=== PATIENT | male | born 1950 | race Caucasian/White ===

== ENCOUNTER 2024-12-08 16:19 | Inpatient (IN) | payer MEDICARE, MEDICAID ==
[2024-12-08] VITALS (20 sets, daily range): BP systolic 69–108; BP diastolic 49–69; PULSE 102–125; RESP 23–38; TEMP 36.7–36.7516; O2SAT 89–100
[~2024-12-08] VITALS: Ht 104.1 cm; Wt 50.8 kg
[2024-12-08 16:47] LABS: HEMATOCRIT. 30.7 % (42.0-52.0); HEMOGLOBIN. 9.4 g/dL (14.0-18.0); MEAN PLATELET VOLUME 7.7 fl (7.4-10.4); PLATELET 579 x1000/uL (130-400); RED BLOOD CELL COUNT 3.64 mill/uL (4.7-6.1); RED CELL DISTRIBUTION WIDTH 17.3 % (11.6-14.6)
[2024-12-08 17:04] LABS: CREATININE 1.1 mg/dL (0.6-1.3); UREA NITROGEN BLOOD 17 mg/dL (9-23)
[2024-12-08 17:06] LABS: ASPARTATE AMINOTRANSFERASE 19 IU/L (<34); BILIRUBIN DIRECT 0.2 mg/dL (<=3.0)
[2024-12-08 17:07] LABS: BILIRUBIN TOTAL 0.4 mg/dL (0.1-1.0); PROTEIN TOTAL 6.7 g/dL (6.0-8.3)
[2024-12-08 17:08] LABS: INR 1.3
[2024-12-08 17:09] LABS: OSMOLALITY 307 mOsm/kg (280-295)
[2024-12-08 17:13] LABS: TROPONIN I HIGH SENSITIVITY 73 ng/L (3.0-53)
[2024-12-08 17:20] LABS: BG BASE EXCESS -4.4 mmol/L (-2.0-3.0); BG CARBOXYHEMOGLOBIN 1.0 % (0.5-1.5); BG DEOXYHEMOGLOBIN 3.9 % (0.0-5.0); BG FLOW(L/min) 40.00 L/min; BG FRACTION INSPIRED OXYGEN 100; BG HCO3 ACT 20.4 mmol/L (21.0-28.0); BG METHEMOGLOBIN 0.3 % (0.5-1.5); BG OXYGEN SATURATION 96.0 % (94.0-98.0); BG OXYHEMOGLOBIN 94.8 % (94.0-98.0); BG PCO2 36.1 mmHg (35.0-48.0); BG PH 7.369 (7.350-7.450); BG PO2 86.4 mmHg (83.0-108.0); BG SAMPLE SITE RIGHT BRACHIAL; BG TOTAL HEMOGLOBIN 8.9 g/dL (13.5-17.5); BG VENT MODE HIGH FLOW
[2024-12-08] MEDS: SODIUM CHLORIDE 0.9% 1,000 ML IV ONE (17:23)
[2024-12-08] MEDS: VANCOMYCIN 1G PREMIX 200 ML IV ONE (17:30)
[2024-12-08] MEDS: ASPIRIN 325MG EC TABLET PO ONE (18:05)
[2024-12-08] MEDS: CLOPIDOGREL 75MG TABLET PO ONE (18:05)
[2024-12-08] MEDS ORDERED: ONDANSETRON HCL 4MG/2ML INJ IV PRN (19:00)
[2024-12-08] MEDS ORDERED: CLONIDINE 0.1MG TABLET PO PRN (19:00)
[2024-12-08] MEDS ORDERED: DOCUSATE SODIUM 100MG CAPSULE PO PRN (19:00)
[2024-12-08 19:53] LABS: BAND% 8.0 % (1.0-6.0); LYMPHOCYTES % MANUAL 25.0 % (20.0-50.0); MONOCYTES % MANUAL 9.0 % (2.0-8.0); NEUTROPHILS % MANUAL 58.0 % (45.0-75.0); PLATELET ESTIMATE MARKEDLY INCREASED
[2024-12-08] MEDS ORDERED: PHENYLEPHRINE 50MG/250ML PMX 250 ML IV PRN (21:00)
[2024-12-08] MEDS ORDERED: PIPERACILLIN/TAZO 3.375G/50ML 50 ML IV ONE (21:00)
[2024-12-08] MEDS: PIPERACILLIN/TAZO 3.375G/50ML 50 ML IV SCH (21:18)
[2024-12-08] MEDS: ACETAMINOPHEN 325MG TABLET PO PRN (21:19)
[2024-12-08] MEDS: BLOOD SUGAR DIAGNOSTIC STRIP TEST SCH (21:38)
[2024-12-08] MEDS: INSULIN LISPRO 100 UNITS/ML SUBCUT SCH (21:46)
[2024-12-08 21:58] LABS: BG BASE EXCESS -3.1 mmol/L (-2.0-3.0); BG CARBOXYHEMOGLOBIN 1.9 % (0.5-1.5); BG DEOXYHEMOGLOBIN 0.7 % (0.0-5.0); BG FLOW(L/min) 15.00 L/min; BG HCO3 ACT 20.9 mmol/L (21.0-28.0); BG METHEMOGLOBIN 0.3 % (0.5-1.5); BG OXYGEN SATURATION 99.3 % (94.0-98.0); BG OXYHEMOGLOBIN 97.1 % (94.0-98.0); BG PCO2 32.8 mmHg (35.0-48.0); BG PH 7.423 (7.350-7.450); BG PO2 133.2 mmHg (83.0-108.0); BG SAMPLE SITE LEFT BRACHIAL; BG TOTAL HEMOGLOBIN 7.1 g/dL (13.5-17.5); BG VENT MODE MASK - NRB
[2024-12-08] MEDS: MORPHINE SULFATE 4 MG/ML INJ (FOR IV/IM USE) IV PRN (23:48)
[2024-12-08] MEDS: PHENYLEPHRINE 50 MG in DEXT 5% WATER 245 ML IV PRN (23:54)
[2024-12-09] VITALS (108 sets, daily range): BP systolic 61–153; BP diastolic 45–89; PULSE 81–132; RESP 16–37; TEMP 36–37.6; O2SAT 72–100
[2024-12-09] MEDS: IPRATROPIUM BROMIDE (0.02%) 0.5MG/2.5ML NEB HHN SCH (00:33)
[2024-12-09] MEDS: VANCOMYCIN 500 MG in DEXT 5% WATER 100 ML IV SCH (05:16)
[2024-12-09 05:27] LABS: HEMATOCRIT. 25.6 % (42.0-52.0); HEMOGLOBIN. 8.0 g/dL (14.0-18.0); MEAN PLATELET VOLUME 7.7 fl (7.4-10.4); PLATELET 463 x1000/uL (130-400); RED BLOOD CELL COUNT 3.12 mill/uL (4.7-6.1); RED CELL DISTRIBUTION WIDTH 17.2 % (11.6-14.6)
[2024-12-09 05:56] LABS: TRIGLYCERIDE 83 mg/dL (0-150)
[2024-12-09 05:57] LABS: LDL CHOLESTEROL 11 mg/dL (5-100)
[2024-12-09 05:58] LABS: T4 FREE 0.65 ng/dL (0.89-1.76)
[2024-12-09 07:38] LABS: CREATININE 1.1 mg/dL (0.6-1.3)
[2024-12-09 07:39] LABS: UREA NITROGEN BLOOD 23 mg/dL (9-23)
[2024-12-09] MEDS: IPRATROPIUM/ALBUTEROL 0.5-3(2.5)MG/3ML NEB HHN PRN (08:08)
[2024-12-09] MEDS ORDERED: NALOXONE HCL 0.4MG/ML VIAL IV PRN (08:30)
[2024-12-09] MEDS: ENOXAPARIN 30MG/0.3ML SYR SUBCUT SCH (08:40)
[2024-12-09 09:53] LABS: INFLUENZA TYPE A Presumptive Negative (Pres. Neg.)
[2024-12-09 09:54] LABS: INFLUENZA TYPE B Presumptive Negative (Pres. Neg.); RESPIRATORY SYNCYTIAL VIRUS Not Detected (Not Detectd)
[2024-12-09] MEDS: PROPOFOL 10MG/ML 100ML 100 ML IV PRN (10:22)
[2024-12-09 11:40] LABS: BG BASE EXCESS -4.6 mmol/L (-2.0-3.0); BG CARBOXYHEMOGLOBIN 0.8 % (0.5-1.5); BG DEOXYHEMOGLOBIN 4.4 % (0.0-5.0); BG FRACTION INSPIRED OXYGEN 50; BG HCO3 ACT 22.8 mmol/L (21.0-28.0); BG METHEMOGLOBIN 0.3 % (0.5-1.5); BG OXYGEN SATURATION 95.6 % (94.0-98.0); BG OXYHEMOGLOBIN 94.5 % (94.0-98.0); BG PCO2 53.7 mmHg (35.0-48.0); BG PEEP (cmH2O) 8.0 cmH2O; BG PH 7.246 (7.350-7.450); BG PO2 93.4 mmHg (83.0-108.0); BG SAMPLE SITE RIGHT BRACHIAL; BG TIDAL VOLUME(mL) 450.0 mL; BG TOTAL HEMOGLOBIN 9.4 g/dL (13.5-17.5); BG TOTAL RESPIRATORY RATE 16 b/min; BG VENT MODE VENT - AC; BG VENT RATE 16.0 set
[2024-12-09 11:52] LABS: LACTATE DEHYDROGENASE 274 IU/L (120-246)
[2024-12-09] MEDS: SODIUM CHLORIDE 0.9% (SEPSIS BOLUS) IV NR (12:30)
[2024-12-09] MEDS: SODIUM CHLORIDE 0.9% 1,000 ML IV SCH (12:30)
[2024-12-09 12:48] LABS: BAND% 47.0 % (1.0-6.0); LYMPHOCYTES % MANUAL 5.0 % (20.0-50.0); MONOCYTES % MANUAL 6.0 % (2.0-8.0); NEUTROPHILS % MANUAL 42.0 % (45.0-75.0); PLATELET ESTIMATE INCREASED
[2024-12-09 13:37] LABS: CLARITY URINE TURBID (CLEAR); COLOR URINE DARK YELLOW (YELLOW); GLUCOSE URINE NEGATIVE (NEGATIVE); KETONES URINE NEGATIVE (NEGATIVE); LEUKOCYTE ESTERASE URINE 3+ (NEGATIVE); NITRITE URINE NEGATIVE (NEGATIVE); OCCULT BLOOD URINE NEGATIVE (NEGATIVE); PH URINE 7.0 (4.5-8.0); PROTEIN URINE 1+ (NEGATIVE); SPECIFIC GRAVITY URINE 1.023 (1.005-1.030); UROBILINOGEN URINE 1.0 E.U./dL (0.2-1.0)
[2024-12-09] MEDS: IPRATROPIUM/ALBUTEROL 0.5-3(2.5)MG/3ML NEB HHN SCH (13:44)
[2024-12-09 14:29] LABS: BACTERIA URINE 4+; SQUAMOUS EPITHELIAL CELL URINE 3+ /lpf (RARE/1+); WBC URINE TNTC /hpf (0-2)
[2024-12-09 14:30] LABS: RBC URINE 0-2 /hpf (0-2)
[2024-12-09] MEDS: NOREPINEPHRINE 8MG/250ML PMX 250 ML IV PRN (17:08)
[2024-12-09] MEDS: PANTOPRAZOLE SODIUM 40 MG/VIAL IV SCH (17:09)
[2024-12-09 19:41] LABS: CLARITY URINE TURBID (CLEAR); COLOR URINE YELLOW (YELLOW); GLUCOSE URINE NEGATIVE (NEGATIVE); KETONES URINE NEGATIVE (NEGATIVE); LEUKOCYTE ESTERASE URINE 3+ (NEGATIVE); NITRITE URINE NEGATIVE (NEGATIVE); OCCULT BLOOD URINE 2+ (NEGATIVE); PH URINE 6.5 (4.5-8.0); PROTEIN URINE 2+ (NEGATIVE); SPECIFIC GRAVITY URINE 1.026 (1.005-1.030); UROBILINOGEN URINE 1.0 E.U./dL (0.2-1.0)
[2024-12-09 21:17] LABS: BACTERIA URINE 3+; RBC URINE TNTC /hpf (0-2); SQUAMOUS EPITHELIAL CELL URINE FEW /lpf (RARE/1+); WBC URINE TNTC /hpf (0-2)
[2024-12-09] MEDS: DEXMEDETOMIDINE 250 ML IV PRN (22:19)
[2024-12-09] MEDS ORDERED: DEXMEDETOMIDINE 100 ML IV PRN (23:00)
[2024-12-10] VITALS (123 sets, daily range): BP systolic 58–176; BP diastolic 19–90; PULSE 76–109; RESP 19–40; TEMP 36.7–38.2; O2SAT 84–100
[2024-12-10] MEDS: ACETAMINOPHEN 325MG TABLET PO PRN (04:32)
[2024-12-10 06:17] LABS: HEMATOCRIT. 23.4 % (42.0-52.0); HEMOGLOBIN. 7.3 g/dL (14.0-18.0); MEAN PLATELET VOLUME 7.3 fl (7.4-10.4); PLATELET 497 x1000/uL (130-400); RED BLOOD CELL COUNT 2.89 mill/uL (4.7-6.1); RED CELL DISTRIBUTION WIDTH 16.7 % (11.6-14.6)
[2024-12-10 06:25] LABS: CREATININE 1.3 mg/dL (0.6-1.3)
[2024-12-10 06:26] LABS: UREA NITROGEN BLOOD 32.0 mg/dL (9-23)
[2024-12-10 09:18] LABS: BG BASE EXCESS -2.6 mmol/L (-2.0-3.0); BG CARBOXYHEMOGLOBIN 0.9 % (0.5-1.5); BG DEOXYHEMOGLOBIN 2.5 % (0.0-5.0); BG FRACTION INSPIRED OXYGEN 45; BG HCO3 ACT 22.1 mmol/L (21.0-28.0); BG METHEMOGLOBIN 0.3 % (0.5-1.5); BG OXYGEN SATURATION 97.5 % (94.0-98.0); BG OXYHEMOGLOBIN 96.3 % (94.0-98.0); BG PCO2 37.7 mmHg (35.0-48.0); BG PEEP (cmH2O) 8.0 cmH2O; BG PH 7.386 (7.350-7.450); BG PO2 99.3 mmHg (83.0-108.0); BG SAMPLE SITE RIGHT BRACHIAL; BG TIDAL VOLUME(mL) 350.0 mL; BG TOTAL HEMOGLOBIN 7.9 g/dL (13.5-17.5); BG TOTAL RESPIRATORY RATE 33 b/min; BG VENT MODE VENT - AC; BG VENT RATE 22.0 set
[2024-12-10] MEDS: MORPHINE SULFATE 4 MG/ML INJ (FOR IV/IM USE) IV SCH (11:14)
[2024-12-10] MEDS: PROPOFOL 10MG/ML 100ML 100 ML IV PRN (13:57)
[2024-12-10 16:10] LABS: BAND% 6.0 % (1.0-6.0); LYMPHOCYTES % MANUAL 10.0 % (20.0-50.0); METAMYELOCYTES % 1.0 % (0-0); MONOCYTES % MANUAL 7.0 % (2.0-8.0); MYELOCYTES % 1.0 % (0-0); NEUTROPHILS % MANUAL 75.0 % (45.0-75.0); PLATELET ESTIMATE INCREASED
[2024-12-10 16:24] LABS: PROTEIN BODY FLUID 2.6 gm/dL
[2024-12-11] VITALS (97 sets, daily range): BP systolic 75–143; BP diastolic 38–69; PULSE 74–107; RESP 20–41; TEMP 36.1–36.9; O2SAT 99–100
[2024-12-11] MEDS ORDERED: FENTANYL 2500MCG/250ML PMX 250 ML IV ONE (04:00)
[2024-12-11] MEDS: FENTANYL CITRATE 2,500 MCG in SODIUM CHLORIDE 0.9% 200 ML IV PRN (04:46)
[2024-12-11] MEDS: VANCOMYCIN 500 MG in DEXT 5% WATER 100 ML IV SCH (05:00)
[2024-12-11 05:26] LABS: MEAN PLATELET VOLUME 7.1 fl (7.4-10.4); PLATELET 336 x1000/uL (130-400); RED BLOOD CELL COUNT 2.65 mill/uL (4.7-6.1); RED CELL DISTRIBUTION WIDTH 16.9 % (11.6-14.6)
[2024-12-11 05:43] LABS: CREATININE 1.0 mg/dL (0.6-1.3); TRIGLYCERIDE 158 mg/dL (0-150); UREA NITROGEN BLOOD 27 mg/dL (9-23)
[2024-12-11 06:49] LABS: HEMATOCRIT. 20.9 % (42.0-52.0); HEMOGLOBIN. 6.8 g/dL (14.0-18.0)
[2024-12-11 09:10] LABS: BG BASE EXCESS -5.1 mmol/L (-2.0-3.0); BG CARBOXYHEMOGLOBIN 0.6 % (0.5-1.5); BG DEOXYHEMOGLOBIN 2.6 % (0.0-5.0); BG FRACTION INSPIRED OXYGEN 50; BG HCO3 ACT 19.1 mmol/L (21.0-28.0); BG METHEMOGLOBIN 0.3 % (0.5-1.5); BG OXYGEN SATURATION 97.4 % (94.0-98.0); BG OXYHEMOGLOBIN 96.5 % (94.0-98.0); BG PCO2 31.4 mmHg (35.0-48.0); BG PEEP (cmH2O) 8.0 cmH2O; BG PH 7.402 (7.350-7.450); BG PO2 102.3 mmHg (83.0-108.0); BG SAMPLE SITE RIGHT BRACHIAL; BG TIDAL VOLUME(mL) 450.0 mL; BG TOTAL HEMOGLOBIN 7.4 g/dL (13.5-17.5); BG VENT MODE VENT - PRVC; BG VENT RATE 22.0 set
[2024-12-11] MEDS: PROPOFOL 10MG/ML 100ML 100 ML IV PRN (12:26)
[2024-12-11 13:48] LABS: BAND% 17.0 % (1.0-6.0); LYMPHOCYTES % MANUAL 4.0 % (20.0-50.0); MONOCYTES % MANUAL 5.0 % (2.0-8.0); NEUTROPHILS % MANUAL 74.0 % (45.0-75.0); PLATELET ESTIMATE NORMAL
[2024-12-11] MEDS: INSULIN LISPRO 100 UNITS/ML SUBCUT SCH (16:47)
[2024-12-11 17:48] LABS: HEMATOCRIT. 25.2 % (42.0-52.0); HEMOGLOBIN. 7.9 g/dL (14.0-18.0); MEAN PLATELET VOLUME 7.4 fl (7.4-10.4); PLATELET 266 x1000/uL (130-400); RED BLOOD CELL COUNT 3.08 mill/uL (4.7-6.1); RED CELL DISTRIBUTION WIDTH 16.0 % (11.6-14.6)
[2024-12-11 18:09] LABS: EOSINOPHILS % MANUAL 2.0 % (0.0-5.0); LYMPHOCYTES % MANUAL 5.0 % (20.0-50.0); MONOCYTES % MANUAL 5.0 % (2.0-8.0); NEUTROPHILS % MANUAL 88.0 % (45.0-75.0); PLATELET ESTIMATE NORMAL
[2024-12-11 18:37] LABS: INR 1.2
[2024-12-11] MEDS: PHENYLEPHRINE 100 MG in DEXT 5% WATER 240 ML IV PRN (23:10)
[2024-12-12] VITALS (103 sets, daily range): BP systolic 44–148; BP diastolic 33–87; PULSE 71–88; RESP 12–45; TEMP 36.1–37.2; O2SAT 74–100
[2024-12-12 03:17] LABS: BASOPHILS % 0.2 % (0.0-2.0); EOSINOPHILS % 0.6 % (0.0-5.0); HEMATOCRIT. 26.4 % (42.0-52.0); HEMOGLOBIN. 8.4 g/dL (14.0-18.0); LYMPHOCYTES % 8.2 % (20.0-50.0); MEAN PLATELET VOLUME 7.5 fl (7.4-10.4); MONOCYTES % 7.4 % (2.0-8.0); NEUTROPHILS % 83.6 % (40.0-76.0); PLATELET 253 x1000/uL (130-400); RED BLOOD CELL COUNT 3.28 mill/uL (4.7-6.1); RED CELL DISTRIBUTION WIDTH 16.5 % (11.6-14.6)
[2024-12-12 03:31] LABS: CREATININE 0.7 mg/dL (0.6-1.3); TRIGLYCERIDE 105 mg/dL (0-150); UREA NITROGEN BLOOD 18 mg/dL (9-23)
[2024-12-12 08:58] LABS: BG BASE EXCESS -1.2 mmol/L (-2.0-3.0); BG CARBOXYHEMOGLOBIN 1.1 % (0.5-1.5); BG DEOXYHEMOGLOBIN 3.2 % (0.0-5.0); BG FRACTION INSPIRED OXYGEN 40; BG HCO3 ACT 21.9 mmol/L (21.0-28.0); BG METHEMOGLOBIN 0.3 % (0.5-1.5); BG OXYGEN SATURATION 96.8 % (94.0-98.0); BG OXYHEMOGLOBIN 95.4 % (94.0-98.0); BG PCO2 30.2 mmHg (35.0-48.0); BG PEEP (cmH2O) 8.0 cmH2O; BG PH 7.479 (7.350-7.450); BG PO2 86.2 mmHg (83.0-108.0); BG SAMPLE SITE RIGHT BRACHIAL; BG TIDAL VOLUME(mL) 450.0 mL; BG TOTAL HEMOGLOBIN 7.9 g/dL (13.5-17.5); BG VENT MODE VENT - PRVC; BG VENT RATE 16.0 set
[2024-12-12] MEDS: KCL 20MEQ/100ML PREMIX 100 ML IV SCH (10:09)
[2024-12-12] MEDS: PROPOFOL 10MG/ML 100ML 100 ML IV PRN (17:40)
[2024-12-13] VITALS (100 sets, daily range): BP systolic 77–162; BP diastolic 46–94; PULSE 69–135; RESP 17–39; TEMP 36.7–37; O2SAT 95–100
[2024-12-13 06:11] LABS: BASOPHILS % 0.3 % (0.0-2.0); EOSINOPHILS % 0.8 % (0.0-5.0); HEMATOCRIT. 23.6 % (42.0-52.0); HEMOGLOBIN. 7.6 g/dL (14.0-18.0); LYMPHOCYTES % 7.5 % (20.0-50.0); MEAN PLATELET VOLUME 7.8 fl (7.4-10.4); MONOCYTES % 7.9 % (2.0-8.0); NEUTROPHILS % 83.5 % (40.0-76.0); PLATELET 232 x1000/uL (130-400); RED BLOOD CELL COUNT 2.93 mill/uL (4.7-6.1); RED CELL DISTRIBUTION WIDTH 16.5 % (11.6-14.6)
[2024-12-13 06:31] LABS: CREATININE 0.6 mg/dL (0.6-1.3)
[2024-12-13 06:33] LABS: TRIGLYCERIDE 114 mg/dL (0-150)
[2024-12-13 06:34] LABS: UREA NITROGEN BLOOD 14 mg/dL (9-23)
[2024-12-13 06:36] LABS: PHOSPHORUS 2.9 mg/dL (2.5-4.9)
[2024-12-13] MEDS: FENTANYL 2500MCG/250ML PMX 250 ML IV PRN (06:36)
[2024-12-13 08:51] LABS: BG BASE EXCESS -0.2 mmol/L (-2.0-3.0); BG CARBOXYHEMOGLOBIN 1.1 % (0.5-1.5); BG DEOXYHEMOGLOBIN 1.7 % (0.0-5.0); BG FRACTION INSPIRED OXYGEN 40; BG HCO3 ACT 23.4 mmol/L (21.0-28.0); BG METHEMOGLOBIN 0.3 % (0.5-1.5); BG OXYGEN SATURATION 98.3 % (94.0-98.0); BG OXYHEMOGLOBIN 96.9 % (94.0-98.0); BG PCO2 33.4 mmHg (35.0-48.0); BG PEEP (cmH2O) 8.0 cmH2O; BG PH 7.463 (7.350-7.450); BG PO2 105.8 mmHg (83.0-108.0); BG SAMPLE SITE RIGHT BRACHIAL; BG TIDAL VOLUME(mL) 450.0 mL; BG TOTAL HEMOGLOBIN 8.2 g/dL (13.5-17.5); BG VENT MODE VENT - PRVC; BG VENT RATE 16.0 set
[2024-12-13] MEDS: KCL 20MEQ/100ML PREMIX 100 ML IV NR (10:37)
[2024-12-13] MEDS: MAGNESIUM 2 G PREMIX 50 ML IV SCH (13:44)
[2024-12-13] MEDS: MORPHINE SULFATE 2 MG/ML INJ (NOT FOR IM USE) IV PRN (14:13)
[2024-12-13 16:37] LABS: BG BASE EXCESS -0.6 mmol/L (-2.0-3.0); BG CARBOXYHEMOGLOBIN 1.3 % (0.5-1.5); BG DEOXYHEMOGLOBIN 3.5 % (0.0-5.0); BG FRACTION INSPIRED OXYGEN 40; BG HCO3 ACT 23.1 mmol/L (21.0-28.0); BG METHEMOGLOBIN 0.3 % (0.5-1.5); BG OXYGEN SATURATION 96.4 % (94.0-98.0); BG OXYHEMOGLOBIN 94.9 % (94.0-98.0); BG PCO2 34.1 mmHg (35.0-48.0); BG PEEP (cmH2O) 8.0 cmH2O; BG PH 7.449 (7.350-7.450); BG PO2 84.2 mmHg (83.0-108.0); BG SAMPLE SITE RIGHT BRACHIAL; BG TOTAL HEMOGLOBIN 9.1 g/dL (13.5-17.5); BG VENT MODE VENT - CPAP
[2024-12-14] VITALS (106 sets, daily range): BP systolic 76–156; BP diastolic 41–81; PULSE 59–120; RESP 12–40; TEMP 36.3–37.1; O2SAT 94–100
[2024-12-14] MEDS: PROPOFOL 10MG/ML 100ML 100 ML IV PRN (01:59)
[2024-12-14 06:08] LABS: BASOPHILS % 0.5 % (0.0-2.0); EOSINOPHILS % 0.9 % (0.0-5.0); HEMATOCRIT. 25.8 % (42.0-52.0); HEMOGLOBIN. 8.0 g/dL (14.0-18.0); LYMPHOCYTES % 9.4 % (20.0-50.0); MEAN PLATELET VOLUME 8.0 fl (7.4-10.4); MONOCYTES % 8.6 % (2.0-8.0); NEUTROPHILS % 80.6 % (40.0-76.0); PLATELET 226 x1000/uL (130-400); RED BLOOD CELL COUNT 3.04 mill/uL (4.7-6.1); RED CELL DISTRIBUTION WIDTH 16.8 % (11.6-14.6)
[2024-12-14 06:19] LABS: CREATININE 0.6 mg/dL (0.6-1.3); UREA NITROGEN BLOOD 11 mg/dL (9-23)
[2024-12-14 06:22] LABS: PHOSPHORUS 2.6 mg/dL (2.5-4.9)
[2024-12-14] MEDS: LACTATED RINGERS 500 ML IV SCH (06:59)
[2024-12-14] MEDS: MAGNESIUM OXIDE 400MG TABLET NG SCH (14:07)
[2024-12-14] MEDS: MAGNESIUM 2 G PREMIX 50 ML IV SCH (14:07)
[2024-12-14] MEDS: MIDODRINE HCL 5MG TABLET NG SCH (14:07)
[2024-12-14] MEDS: PIPERACILLIN/TAZO 3.375G/50ML 50 ML IV SCH (14:07)
[2024-12-14] MEDS: DEXMEDETOMIDINE 250 ML IV PRN (14:09)
[2024-12-14] MEDS: DEXMEDETOMIDINE 100 ML IV PRN (19:19)
[2024-12-14] MEDS: SODIUM CHLORIDE 0.9% 1,000 ML IV SCH (21:18)
[2024-12-14] MEDS ORDERED: NOREPINEPHRINE 8MG/250ML PMX 250 ML IV PRN (23:30)
[2024-12-15] VITALS (91 sets, daily range): BP systolic 93–165; BP diastolic 48–88; PULSE 59–138; RESP 19–39; TEMP 36.4–36.8; O2SAT 81–100
[2024-12-15] MEDS: MORPHINE SULFATE 4 MG/ML INJ (FOR IV/IM USE) IV PRN (02:16)
[2024-12-15] MEDS: PNEUMOCOCCAL 20-VAL CONJ-DIP CRM 0.5ML IM ONE (02:18)
[2024-12-15] MEDS: INFLUENZA VACCINE 05/PF 0.5 ML SYRINGE IM ONE (02:19)
[2024-12-15 07:20] LABS: HEMATOCRIT. 22.6 % (42.0-52.0); HEMOGLOBIN. 7.2 g/dL (14.0-18.0); MEAN PLATELET VOLUME 7.9 fl (7.4-10.4); PLATELET 257 x1000/uL (130-400); RED BLOOD CELL COUNT 2.78 mill/uL (4.7-6.1); RED CELL DISTRIBUTION WIDTH 17.0 % (11.6-14.6)
[2024-12-15 07:40] LABS: CREATININE 0.5 mg/dL (0.6-1.3); UREA NITROGEN BLOOD 10 mg/dL (9-23)
[2024-12-15 07:42] LABS: ASPARTATE AMINOTRANSFERASE 14 IU/L (<34); BILIRUBIN DIRECT 0.2 mg/dL (<=3.0); BILIRUBIN TOTAL 0.3 mg/dL (0.1-1.0); PHOSPHORUS 3.1 mg/dL (2.5-4.9); PROTEIN TOTAL 5.2 g/dL (6.0-8.3)
[2024-12-15 10:56] LABS: BAND% 12.0 % (1.0-6.0); LYMPHOCYTES % MANUAL 7.0 % (20.0-50.0); MONOCYTES % MANUAL 1.0 % (2.0-8.0); NEUTROPHILS % MANUAL 80.0 % (45.0-75.0)
[2024-12-15 10:57] LABS: PLATELET ESTIMATE NORMAL
[2024-12-15 12:52] LABS: BG BASE EXCESS 2.7 mmol/L (-2.0-3.0); BG CARBOXYHEMOGLOBIN 1.1 % (0.5-1.5); BG DEOXYHEMOGLOBIN 3.2 % (0.0-5.0); BG FRACTION INSPIRED OXYGEN 40; BG HCO3 ACT 26.3 mmol/L (21.0-28.0); BG METHEMOGLOBIN 0.3 % (0.5-1.5); BG OXYGEN SATURATION 96.8 % (94.0-98.0); BG OXYHEMOGLOBIN 95.4 % (94.0-98.0); BG PCO2 36.4 mmHg (35.0-48.0); BG PEEP (cmH2O) 5.0 cmH2O; BG PH 7.477 (7.350-7.450); BG PO2 87.0 mmHg (83.0-108.0); BG SAMPLE SITE LEFT RADIAL; BG TOTAL HEMOGLOBIN 8.7 g/dL (13.5-17.5); BG VENT MODE VENT - CPAP
[2024-12-15] MEDS: MIDODRINE HCL 5MG TABLET NG SCH (14:50)
[2024-12-15] MEDS ORDERED: NON FORMULARY MED XX SCH (15:30)
[2024-12-15] MEDS: IRON SUCROSE COMPLEX 100 MG/5 ML ML IV SCH (16:21)
[2024-12-16] VITALS (82 sets, daily range): BP systolic 90–143; BP diastolic 48–84; PULSE 76–118; RESP 21–47; TEMP 36.2–36.9; O2SAT 89–100
[2024-12-16 07:03] LABS: CREATININE 0.5 mg/dL (0.6-1.3); UREA NITROGEN BLOOD 12 mg/dL (9-23)
[2024-12-16 07:05] LABS: PHOSPHORUS 3.7 mg/dL (2.5-4.9)
[2024-12-16 07:08] LABS: HEMATOCRIT. 26.1 % (42.0-52.0); HEMOGLOBIN. 8.2 g/dL (14.0-18.0); RED BLOOD CELL COUNT 3.13 mill/uL (4.7-6.1); RED CELL DISTRIBUTION WIDTH 17.7 % (11.6-14.6)
[2024-12-16 07:09] LABS: FOLIC ACID (FOLATE) SERUM > 20.00 ng/mL (>5.38); VITAMIN B12 SERUM 1709 pg/mL (211-911)
[2024-12-16 08:43] LABS: BAND% 4.0 % (1.0-6.0); LYMPHOCYTES % MANUAL 2.0 % (20.0-50.0); MONOCYTES % MANUAL 8.0 % (2.0-8.0); NEUTROPHILS % MANUAL 86.0 % (45.0-75.0)
[2024-12-16 08:48] LABS: MEAN PLATELET VOLUME 8.3 fl (7.4-10.4); PLATELET 293 x1000/uL (130-400)
[2024-12-16] MEDS: LACTATED RINGERS 250 ML IV ONE (11:26)
[2024-12-16 14:09] LABS: PLATELET ESTIMATE NORMAL
[2024-12-17] VITALS (88 sets, daily range): BP systolic 92–155; BP diastolic 43–92; PULSE 82–137; RESP 12–50; TEMP 36.3–36.9474; O2SAT 87–100
[2024-12-17 05:37] LABS: HEMATOCRIT. 21.3 % (42.0-52.0); MEAN PLATELET VOLUME 8.1 fl (7.4-10.4); PLATELET 291 x1000/uL (130-400); RED BLOOD CELL COUNT 2.60 mill/uL (4.7-6.1); RED CELL DISTRIBUTION WIDTH 17.4 % (11.6-14.6)
[2024-12-17 05:57] LABS: HEMOGLOBIN. 6.8 g/dL (14.0-18.0)
[2024-12-17 06:10] LABS: CREATININE 0.5 mg/dL (0.6-1.3)
[2024-12-17 06:11] LABS: UREA NITROGEN BLOOD 14 mg/dL (9-23)
[2024-12-17 06:13] LABS: PHOSPHORUS 3.0 mg/dL (2.5-4.9)
[2024-12-17 12:00] LABS: BG BASE EXCESS -0.1 mmol/L (-2.0-3.0); BG CARBOXYHEMOGLOBIN 0.8 % (0.5-1.5); BG DEOXYHEMOGLOBIN 4.6 % (0.0-5.0); BG FLOW(L/min) 4.00 L/min; BG FRACTION INSPIRED OXYGEN 36; BG HCO3 ACT 22.5 mmol/L (21.0-28.0); BG METHEMOGLOBIN 0.3 % (0.5-1.5); BG OXYGEN SATURATION 95.3 % (94.0-98.0); BG OXYHEMOGLOBIN 94.3 % (94.0-98.0); BG PCO2 28.4 mmHg (35.0-48.0); BG PH 7.516 (7.350-7.450); BG PO2 75.1 mmHg (83.0-108.0); BG SAMPLE SITE RIGHT RADIAL; BG TOTAL HEMOGLOBIN 7.8 g/dL (13.5-17.5); BG VENT MODE NASAL CANNULA
[2024-12-17] MEDS: SODIUM CHLORIDE 0.9% 1,000 ML IV SCH (13:15)
[2024-12-17 14:19] LABS: LYMPHOCYTES % MANUAL 4.0 % (20.0-50.0); MONOCYTES % MANUAL 6.0 % (2.0-8.0); NEUTROPHILS % MANUAL 90.0 % (45.0-75.0); PLATELET ESTIMATE NORMAL
[2024-12-17 17:40] LABS: SODIUM URINE RANDOM 19.0 mEq/L
[2024-12-17 17:48] LABS: CREATININE URINE RANDOM 55.7 mg/dL
[2024-12-17] MEDS: IPRATROPIUM/ALBUTEROL 0.5-3(2.5)MG/3ML NEB HHN SCH (20:50)
[2024-12-18] VITALS (96 sets, daily range): BP systolic 95–157; BP diastolic 42–93; PULSE 83–115; RESP 16–41; TEMP 36.2–36.6; O2SAT 92–100
[2024-12-18] MEDS: ACETYLCYSTEINE 200MG/ML 20% VIAL 4ML INH SCH (00:56)
[2024-12-18 05:53] LABS: HEMATOCRIT. 26.7 % (42.0-52.0); HEMOGLOBIN. 8.8 g/dL (14.0-18.0); MEAN PLATELET VOLUME 8.1 fl (7.4-10.4); PLATELET 285 x1000/uL (130-400); RED BLOOD CELL COUNT 3.24 mill/uL (4.7-6.1); RED CELL DISTRIBUTION WIDTH 17.5 % (11.6-14.6)
[2024-12-18 05:58] LABS: CREATININE 0.4 mg/dL (0.6-1.3)
[2024-12-18 05:59] LABS: UREA NITROGEN BLOOD 10 mg/dL (9-23)
[2024-12-18 06:01] LABS: PHOSPHORUS 2.4 mg/dL (2.5-4.9)
[2024-12-18] MEDS: POTASSIUM CHLORIDE 20MEQ/PACKET PO NR ×2 (06:14→08:53)
[2024-12-18] MEDS ORDERED: KCL 20MEQ/100ML PREMIX 100 ML IV ONE (06:15)
[2024-12-18] MEDS: POTASSIUM PHOSPHATE 20 MMOL in DEXT 5% WATER 243.3333 ML IV NR (06:44)
[2024-12-18] MEDS: SODIUM CHLORIDE 0.45% 1,000 ML IV SCH (13:02)
[2024-12-18] MEDS: GUAIFENESIN 200MG/10ML SUGAR FREE UDC PO SCH (13:02)
[2024-12-18] MEDS: MAGNESIUM 4 G PREMIX 100 ML IV NR (13:05)
[2024-12-18 15:41] LABS: BAND% 2.0 % (1.0-6.0); LYMPHOCYTES % MANUAL 7.0 % (20.0-50.0); MONOCYTES % MANUAL 6.0 % (2.0-8.0); NEUTROPHILS % MANUAL 85.0 % (45.0-75.0)
[2024-12-18 15:42] LABS: PLATELET ESTIMATE NORMAL
[2024-12-18] MEDS ORDERED: FAMOTIDINE 20MG/2ML VIAL IV NR (17:00)
[2024-12-19] VITALS (22 sets, daily range): BP systolic 104–153; BP diastolic 61–80; PULSE 100–116; RESP 18–41; TEMP 36.4–37; O2SAT 91–100
[2024-12-19 06:40] LABS: CREATININE 0.5 mg/dL (0.6-1.3); UREA NITROGEN BLOOD 8 mg/dL (9-23)
[2024-12-19 06:42] LABS: PHOSPHORUS 2.4 mg/dL (2.5-4.9)
[2024-12-19 06:46] LABS: HEMATOCRIT. 27.8 % (42.0-52.0); HEMOGLOBIN. 9.2 g/dL (14.0-18.0); MEAN PLATELET VOLUME 7.8 fl (7.4-10.4); PLATELET 282 x1000/uL (130-400); RED BLOOD CELL COUNT 3.35 mill/uL (4.7-6.1); RED CELL DISTRIBUTION WIDTH 17.8 % (11.6-14.6)
[2024-12-19 09:07] LABS: *CREATININE RANDOM URINE 53.9 mg/dL (Not Estab.); MICROALBUMIN RANDOM URINE 70.4 ug/mL (Not Estab.); MICROALBUMIN/CREATININE RATIO 131.0 mg/g creat (0-29)
[2024-12-19] MEDS: POTASSIUM CHLORIDE 20MEQ/PACKET NG NR (10:45)
[2024-12-19] MEDS: POTASSIUM PHOSPHATE 15 MMOL in DEXT 5% WATER 245 ML IV NR (13:47)
[2024-12-19 20:46] LABS: LYMPHOCYTES % MANUAL 6.0 % (20.0-50.0); MONOCYTES % MANUAL 8.0 % (2.0-8.0); NEUTROPHILS % MANUAL 86.0 % (45.0-75.0); PLATELET ESTIMATE NORMAL
[2024-12-20] VITALS (18 sets, daily range): BP systolic 96–127; BP diastolic 52–65; PULSE 92–103; RESP 20–40; TEMP 36.7–37.2; O2SAT 88–99
[2024-12-20 07:59] LABS: BASOPHILS % 0.4 % (0.0-2.0); EOSINOPHILS % 0.5 % (0.0-5.0); HEMATOCRIT. 25.6 % (42.0-52.0); HEMOGLOBIN. 8.7 g/dL (14.0-18.0); LYMPHOCYTES % 7.3 % (20.0-50.0); MEAN PLATELET VOLUME 7.8 fl (7.4-10.4); MONOCYTES % 5.6 % (2.0-8.0); NEUTROPHILS % 86.2 % (40.0-76.0); PLATELET 283 x1000/uL (130-400); RED BLOOD CELL COUNT 3.04 mill/uL (4.7-6.1); RED CELL DISTRIBUTION WIDTH 18.0 % (11.6-14.6)
[2024-12-20 08:07] LABS: CREATININE 0.5 mg/dL (0.6-1.3)
[2024-12-20 08:08] LABS: UREA NITROGEN BLOOD 10 mg/dL (9-23)
[2024-12-20 08:10] LABS: PHOSPHORUS 2.5 mg/dL (2.5-4.9)
[2024-12-20] MEDS: FUROSEMIDE 40MG/4ML VIAL IVP SCH (12:54)
[2024-12-20] MEDS: MAGNESIUM 2 G PREMIX 50 ML IV SCH (13:29)
[2024-12-20] MEDS: MIDODRINE HCL 5MG TABLET NG SCH (13:30)
[2024-12-20 14:07] LABS: BG BASE EXCESS -1.2 mmol/L (-2.0-3.0); BG CARBOXYHEMOGLOBIN 1.4 % (0.5-1.5); BG DEOXYHEMOGLOBIN 9.3 % (0.0-5.0); BG FLOW(L/min) 20.00 L/min; BG FRACTION INSPIRED OXYGEN 40; BG HCO3 ACT 20.8 mmol/L (21.0-28.0); BG METHEMOGLOBIN 0.3 % (0.5-1.5); BG OXYGEN SATURATION 90.5 % (94.0-98.0); BG OXYHEMOGLOBIN 89.0 % (94.0-98.0); BG PCO2 26.5 mmHg (35.0-48.0); BG PH 7.513 (7.350-7.450); BG PO2 55.9 mmHg (83.0-108.0); BG SAMPLE SITE LEFT RADIAL; BG TOTAL HEMOGLOBIN 10.6 g/dL (13.5-17.5); BG VENT MODE HIGH FLOW
[2024-12-21] VITALS (20 sets, daily range): BP systolic 103–117; BP diastolic 52–65; PULSE 87–106; RESP 17–40; TEMP 36.5–36.9; O2SAT 90–100
[2024-12-21 07:32] LABS: BASOPHILS % 0.4 % (0.0-2.0); EOSINOPHILS % 0.7 % (0.0-5.0); HEMATOCRIT. 29.7 % (42.0-52.0); HEMOGLOBIN. 9.5 g/dL (14.0-18.0); LYMPHOCYTES % 8.5 % (20.0-50.0); MEAN PLATELET VOLUME 8.1 fl (7.4-10.4); MONOCYTES % 6.4 % (2.0-8.0); NEUTROPHILS % 84.0 % (40.0-76.0); PLATELET 293 x1000/uL (130-400); RED BLOOD CELL COUNT 3.47 mill/uL (4.7-6.1); RED CELL DISTRIBUTION WIDTH 19.1 % (11.6-14.6)
[2024-12-21 07:45] LABS: CREATININE 0.6 mg/dL (0.6-1.3)
[2024-12-21 07:46] LABS: UREA NITROGEN BLOOD 13 mg/dL (9-23)
[2024-12-21 07:48] LABS: PHOSPHORUS 2.7 mg/dL (2.5-4.9)
[2024-12-21] MEDS ORDERED: FUROSEMIDE 40MG/4ML VIAL IVP SCH (09:00)
[2024-12-21] MEDS: FUROSEMIDE 40MG/4ML VIAL IVP SCH (09:32)
[2024-12-21 19:10] LABS: BG BASE EXCESS 4.5 mmol/L (-2.0-3.0); BG CARBOXYHEMOGLOBIN 0.5 % (0.5-1.5); BG DEOXYHEMOGLOBIN 5.4 % (0.0-5.0); BG FLOW(L/min) 40.00 L/min; BG FRACTION INSPIRED OXYGEN 100; BG HCO3 ACT 27.0 mmol/L (21.0-28.0); BG METHEMOGLOBIN 0.3 % (0.5-1.5); BG OXYGEN SATURATION 94.6 % (94.0-98.0); BG OXYHEMOGLOBIN 93.8 % (94.0-98.0); BG PCO2 32.7 mmHg (35.0-48.0); BG PH 7.535 (7.350-7.450); BG PO2 69.7 mmHg (83.0-108.0); BG SAMPLE SITE RIGHT RADIAL; BG TOTAL HEMOGLOBIN 10.2 g/dL (13.5-17.5); BG VENT MODE HIGH FLOW
[2024-12-22] VITALS (19 sets, daily range): BP systolic 96–124; BP diastolic 50–72; PULSE 92–110; RESP 13–40; TEMP 36.6–36.9; O2SAT 94–100
[2024-12-22 08:24] LABS: HEMATOCRIT. 30.4 % (42.0-52.0); HEMOGLOBIN. 9.7 g/dL (14.0-18.0); MEAN PLATELET VOLUME 8.3 fl (7.4-10.4); PLATELET 343 x1000/uL (130-400); RED BLOOD CELL COUNT 3.54 mill/uL (4.7-6.1); RED CELL DISTRIBUTION WIDTH 19.7 % (11.6-14.6)
[2024-12-22 08:39] LABS: CREATININE 0.7 mg/dL (0.6-1.3)
[2024-12-22 08:40] LABS: UREA NITROGEN BLOOD 12 mg/dL (9-23)
[2024-12-22 08:42] LABS: PHOSPHORUS 2.3 mg/dL (2.5-4.9)
[2024-12-22] MEDS: KCL 20MEQ/100ML PREMIX 100 ML IV SCH (13:07)
[2024-12-22] MEDS: MAGNESIUM 2 G PREMIX 50 ML IV SCH (13:07)
[2024-12-22] MEDS: FUROSEMIDE 40MG/4ML VIAL IVP NR (13:07)
[2024-12-22] MEDS: IPRATROPIUM/ALBUTEROL 0.5-3(2.5)MG/3ML NEB HHN SCH (14:47)
[2024-12-22] MEDS: POTASSIUM PHOSPHATE 15 MMOL in DEXT 5% WATER 245 ML IV SCH (15:27)
[2024-12-22] MEDS: METHYLPREDNISOLONE SOD SUCC 40MG/ML (ACT-O-VIAL) IV SCH (15:27)
[2024-12-22 16:39] LABS: BAND% 3.0 % (1.0-6.0); LYMPHOCYTES % MANUAL 3.0 % (20.0-50.0); MONOCYTES % MANUAL 2.0 % (2.0-8.0); NEUTROPHILS % MANUAL 92.0 % (45.0-75.0); PLATELET ESTIMATE NORMAL
[2024-12-22] MEDS: FUROSEMIDE 40MG/4ML VIAL IVP SCH (17:52)
[2024-12-23] VITALS (19 sets, daily range): BP systolic 105–132; BP diastolic 59–89; PULSE 97–109; RESP 20–36; TEMP 36.4–36.9; O2SAT 98–100
[2024-12-23 06:04] LABS: HEMATOCRIT. 27.2 % (42.0-52.0); HEMOGLOBIN. 9.0 g/dL (14.0-18.0); MEAN PLATELET VOLUME 8.3 fl (7.4-10.4); PLATELET 337 x1000/uL (130-400); RED BLOOD CELL COUNT 3.23 mill/uL (4.7-6.1); RED CELL DISTRIBUTION WIDTH 19.6 % (11.6-14.6)
[2024-12-23 06:12] LABS: CREATININE 0.8 mg/dL (0.6-1.3)
[2024-12-23 06:13] LABS: UREA NITROGEN BLOOD 18 mg/dL (9-23)
[2024-12-23 06:15] LABS: PHOSPHORUS 3.9 mg/dL (2.5-4.9)
[2024-12-23] MEDS: INSULIN GLARGINE 100 UNITS/ML SUBCUT SCH (11:12)
[2024-12-23] MEDS: INSULIN LISPRO 100 UNITS/ML SUBCUT NR (11:13)
[2024-12-23] MEDS: POTASSIUM CHLORIDE 20MEQ/PACKET NG NR (11:13)
[2024-12-23] MEDS: INSULIN LISPRO 100 UNITS/ML SUBCUT SCH (13:23)
[2024-12-23 17:48] LABS: LYMPHOCYTES % MANUAL 6.0 % (20.0-50.0); MONOCYTES % MANUAL 2.0 % (2.0-8.0); NEUTROPHILS % MANUAL 92.0 % (45.0-75.0); PLATELET ESTIMATE NORMAL
[2024-12-23] MEDS: DEXTROSE 50% WATER 50ML SYRINGE IV PRN (17:48)
[2024-12-24] VITALS (22 sets, daily range): BP systolic 95–136; BP diastolic 56–78; PULSE 95–121; RESP 24–41; TEMP 36.7–37; O2SAT 89–100
[2024-12-24 06:05] LABS: HEMATOCRIT. 29.2 % (42.0-52.0); HEMOGLOBIN. 9.3 g/dL (14.0-18.0); MEAN PLATELET VOLUME 8.4 fl (7.4-10.4); PLATELET 404 x1000/uL (130-400); RED BLOOD CELL COUNT 3.36 mill/uL (4.7-6.1); RED CELL DISTRIBUTION WIDTH 20.1 % (11.6-14.6)
[2024-12-24 06:25] LABS: CREATININE 0.8 mg/dL (0.6-1.3)
[2024-12-24 06:27] LABS: UREA NITROGEN BLOOD 24 mg/dL (9-23)
[2024-12-24 06:29] LABS: PHOSPHORUS 3.4 mg/dL (2.5-4.9)
[2024-12-24] MEDS: IPRATROPIUM BROMIDE (0.02%) 0.5MG/2.5ML NEB HHN SCH ×3 (08:14→16:28)
[2024-12-24 09:48] LABS: BG BASE EXCESS 7.0 mmol/L (-2.0-3.0); BG CARBOXYHEMOGLOBIN 0.3 % (0.5-1.5); BG DEOXYHEMOGLOBIN 0.3 % (0.0-5.0); BG FLOW(L/min) 40.00 L/min; BG FRACTION INSPIRED OXYGEN 100; BG HCO3 ACT 29.6 mmol/L (21.0-28.0); BG METHEMOGLOBIN 0.3 % (0.5-1.5); BG OXYGEN SATURATION 99.7 % (94.0-98.0); BG OXYHEMOGLOBIN 99.1 % (94.0-98.0); BG PCO2 34.5 mmHg (35.0-48.0); BG PH 7.551 (7.350-7.450); BG PO2 224.5 mmHg (83.0-108.0); BG SAMPLE SITE RIGHT RADIAL; BG TOTAL HEMOGLOBIN 10.2 g/dL (13.5-17.5); BG VENT MODE HIGH FLOW
[2024-12-24] MEDS: IOHEXOL-350 100 ML BOTTLE ONE (12:27)
[2024-12-24] MEDS: INSULIN GLARGINE 100 UNITS/ML SUBCUT SCH (12:52)
[2024-12-24] MEDS: SODIUM CHLORIDE 3% FOR INH 4ML NEB INH SCH (12:52)
[2024-12-24] MEDS: SODIUM CHLORIDE 0.9% 250 ML IV ONE (12:53)
[2024-12-24] MEDS: ENOXAPARIN 60MG/0.6ML SYR SUBCUT SCH (13:16)
[2024-12-24] MEDS: ACETYLCYSTEINE 200MG/ML 20% VIAL 4ML INH SCH (14:26)
[2024-12-24] MEDS ORDERED: IPRATROPIUM/ALBUTEROL 0.5-3(2.5)MG/3ML NEB HHN PRN (16:30)
[2024-12-24] MEDS ORDERED: KETOROLAC 30MG/ML VIAL IV PRN (16:45)
[2024-12-24] MEDS: KETOROLAC 15MG/ML VIAL IV PRN (17:12)
[2024-12-24] MEDS: FUROSEMIDE 40MG/4ML VIAL IVP SCH (17:12)
[2024-12-24 20:21] LABS: LYMPHOCYTES % MANUAL 10.0 % (20.0-50.0); MONOCYTES % MANUAL 5.0 % (2.0-8.0); NEUTROPHILS % MANUAL 85.0 % (45.0-75.0); PLATELET ESTIMATE INCREASED
[2024-12-24] MEDS ORDERED: INSULIN GLARGINE 100 UNITS/ML SUBCUT SCH (22:00)
[2024-12-25] VITALS (22 sets, daily range): BP systolic 91–132; BP diastolic 58–93; PULSE 78–116; RESP 18–45; TEMP 36.6–38.3; O2SAT 95–100
[2024-12-25 07:17] LABS: HEMATOCRIT. 31.8 % (42.0-52.0); HEMOGLOBIN. 10.1 g/dL (14.0-18.0); MEAN PLATELET VOLUME 8.4 fl (7.4-10.4); PLATELET 433 x1000/uL (130-400); RED BLOOD CELL COUNT 3.70 mill/uL (4.7-6.1); RED CELL DISTRIBUTION WIDTH 20.3 % (11.6-14.6)
[2024-12-25 07:31] LABS: UREA NITROGEN BLOOD 33 mg/dL (9-23)
[2024-12-25 07:32] LABS: CREATININE 0.9 mg/dL (0.6-1.3)
[2024-12-25 07:34] LABS: ASPARTATE AMINOTRANSFERASE 16 IU/L (<34)
[2024-12-25 07:35] LABS: BILIRUBIN DIRECT 0.1 mg/dL (<=3.0); BILIRUBIN TOTAL 0.3 mg/dL (0.1-1.0); PHOSPHORUS 3.0 mg/dL (2.5-4.9); PROTEIN TOTAL 7.1 g/dL (6.0-8.3)
[2024-12-25 09:43] LABS: BG BASE EXCESS 12.2 mmol/L (-2.0-3.0); BG CARBOXYHEMOGLOBIN 0.9 % (0.5-1.5); BG DEOXYHEMOGLOBIN 1.0 % (0.0-5.0); BG FRACTION INSPIRED OXYGEN 100; BG HCO3 ACT 35.3 mmol/L (21.0-28.0); BG METHEMOGLOBIN 0.0 % (0.5-1.5); BG OXYGEN SATURATION 99.0 % (94.0-98.0); BG OXYHEMOGLOBIN 98.1 % (94.0-98.0); BG PCO2 39.4 mmHg (35.0-48.0); BG PH 7.570 (7.350-7.450); BG PO2 127.3 mmHg (83.0-108.0); BG SAMPLE SITE RIGHT RADIAL; BG TOTAL HEMOGLOBIN 10.7 g/dL (13.5-17.5); BG VENT MODE MASK - NRB
[2024-12-25] MEDS: POTASSIUM CHLORIDE 20MEQ/PACKET PO NR (11:28)
[2024-12-25 14:00] LABS: BG BASE EXCESS 8.7 mmol/L (-2.0-3.0); BG CARBOXYHEMOGLOBIN 0.7 % (0.5-1.5); BG DEOXYHEMOGLOBIN 8.0 % (0.0-5.0); BG FLOW(L/min) 25.00 L/min; BG FRACTION INSPIRED OXYGEN 60; BG HCO3 ACT 31.7 mmol/L (21.0-28.0); BG METHEMOGLOBIN 0.3 % (0.5-1.5); BG OXYGEN SATURATION 91.9 % (94.0-98.0); BG OXYHEMOGLOBIN 91.0 % (94.0-98.0); BG PCO2 37.3 mmHg (35.0-48.0); BG PH 7.547 (7.350-7.450); BG PO2 58.0 mmHg (83.0-108.0); BG SAMPLE SITE RIGHT RADIAL; BG TOTAL HEMOGLOBIN 11.2 g/dL (13.5-17.5); BG VENT MODE HIGH FLOW
[2024-12-25] MEDS: DEXTROSE 5% WATER 1,000 ML IV SCH (15:25)
[2024-12-25 17:37] LABS: LYMPHOCYTES % MANUAL 5.0 % (20.0-50.0); MONOCYTES % MANUAL 4.0 % (2.0-8.0); NEUTROPHILS % MANUAL 91.0 % (45.0-75.0); PLATELET ESTIMATE INCREASED
[2024-12-26] VITALS (26 sets, daily range): BP systolic 71–124; BP diastolic 47–72; PULSE 80–105; RESP 16–39; TEMP 36.4–37.4; O2SAT 98–100
[2024-12-26 06:40] LABS: HEMATOCRIT. 32.7 % (42.0-52.0); HEMOGLOBIN. 10.3 g/dL (14.0-18.0); MEAN PLATELET VOLUME 8.8 fl (7.4-10.4); PLATELET 394 x1000/uL (130-400); RED BLOOD CELL COUNT 3.76 mill/uL (4.7-6.1); RED CELL DISTRIBUTION WIDTH 20.5 % (11.6-14.6)
[2024-12-26 06:46] LABS: CREATININE 1.0 mg/dL (0.6-1.3)
[2024-12-26 06:47] LABS: UREA NITROGEN BLOOD 47 mg/dL (9-23)
[2024-12-26 06:49] LABS: PHOSPHORUS 3.1 mg/dL (2.5-4.9)
[2024-12-26] MEDS: POTASSIUM CHLORIDE 20MEQ/PACKET PO NR (13:08)
[2024-12-26] MEDS: MIDODRINE HCL 5MG TABLET PO PRN (19:46)
[2024-12-26 22:13] LABS: CREATININE 1.1 mg/dL (0.6-1.3); UREA NITROGEN BLOOD 51 mg/dL (9-23)
[2024-12-26 22:15] LABS: PHOSPHORUS 1.8 mg/dL (2.5-4.9)
[2024-12-27] VITALS (52 sets, daily range): BP systolic 85–129; BP diastolic 43–68; PULSE 64–80; RESP 13–37; TEMP 36.6–36.7; O2SAT 91–100
[2024-12-27] MEDS: SODIUM CHLORIDE 0.45% 1,000 ML IV SCH (01:38)
[2024-12-27] MEDS: POTASSIUM PHOSPHATE 15 MMOL in DEXT 5% WATER 245 ML IV NR (01:38)
[2024-12-27 07:49] LABS: CREATININE 1.0 mg/dL (0.6-1.3); HEMATOCRIT. 31.9 % (42.0-52.0); HEMOGLOBIN. 10.0 g/dL (14.0-18.0); MEAN PLATELET VOLUME 9.1 fl (7.4-10.4); PLATELET 378 x1000/uL (130-400); RED BLOOD CELL COUNT 3.62 mill/uL (4.7-6.1); RED CELL DISTRIBUTION WIDTH 19.9 % (11.6-14.6); UREA NITROGEN BLOOD 49 mg/dL (9-23)
[2024-12-27 07:51] LABS: ASPARTATE AMINOTRANSFERASE 12 IU/L (<34)
[2024-12-27 07:52] LABS: BILIRUBIN DIRECT 0.1 mg/dL (<=3.0); BILIRUBIN TOTAL 0.3 mg/dL (0.1-1.0); PHOSPHORUS 3.7 mg/dL (2.5-4.9); PROTEIN TOTAL 6.5 g/dL (6.0-8.3)
[2024-12-27] MEDS: INSULIN LISPRO 100 UNITS/ML SUBCUT SCH (09:00)
[2024-12-27 14:15] LABS: BAND% 2.0 % (1.0-6.0); LYMPHOCYTES % MANUAL 4.0 % (20.0-50.0); MONOCYTES % MANUAL 5.0 % (2.0-8.0); NEUTROPHILS % MANUAL 89.0 % (45.0-75.0); PLATELET ESTIMATE NORMAL
[2024-12-27 15:22] LABS: LYMPHOCYTES % MANUAL 5.0 % (20.0-50.0); MONOCYTES % MANUAL 3.0 % (2.0-8.0); NEUTROPHILS % MANUAL 92.0 % (45.0-75.0); PLATELET ESTIMATE NORMAL
== END 2024-12-27 19:30 | DRG 870 ==
LOC: ER 16:19 → 5EST 17:51 → EDBEDREQ 17:54 → MICUSO 21:30 → 5EST 12-19 00:20
PROVIDERS: ADMIT Internal Medicine; ATTEND Internal Medicine
PROC: 02HV33Z Insertion of Infusion Device into Superior Vena Cava, Percutaneous Approach (ICD-10-PCS; 2024-12-08)
PROC: B548ZZA Ultrasonography of Superior Vena Cava, Guidance (ICD-10-PCS; 2024-12-08)
PROC: 5A0935A Assistance with Respiratory Ventilation, Less than 24 Consecutive Hours, High Flow/Velocity Cannula (ICD-10-PCS; 2024-12-08)
PROC: 5A1955Z Respiratory Ventilation, Greater than 96 Consecutive Hours (ICD-10-PCS; principal; 2024-12-09)
PROC: 0BH17EZ Insertion of Endotracheal Airway into Trachea, Via Natural or Artificial Opening (ICD-10-PCS; 2024-12-09)
PROC: 0B9M8ZX Drainage of Bilateral Lungs, Via Natural or Artificial Opening Endoscopic, Diagnostic (ICD-10-PCS; 2024-12-09)
PROC: 0BC28ZZ Extirpation of Matter from Carina, Via Natural or Artificial Opening Endoscopic (ICD-10-PCS; 2024-12-09)
PROC: 0W9B30Z Drainage of Left Pleural Cavity with Drainage Device, Percutaneous Approach (ICD-10-PCS; 2024-12-10)
PROC: 30233N1 Transfusion of Nonautologous Red Blood Cells into Peripheral Vein, Percutaneous Approach (ICD-10-PCS; 2024-12-11)
PROC: 5A09457 Assistance with Respiratory Ventilation, 24-96 Consecutive Hours, Continuous Positive Airway Pressure (ICD-10-PCS; 2024-12-15)
PROC: 5A09357 Assistance with Respiratory Ventilation, Less than 24 Consecutive Hours, Continuous Positive Airway Pressure (ICD-10-PCS; 2024-12-17)
PROC: 5A0955A Assistance with Respiratory Ventilation, Greater than 96 Consecutive Hours, High Flow/Velocity Cannula (ICD-10-PCS; 2024-12-18)
DX: A41.9 Sepsis, unspecified organism (principal); I21.4 Non-ST elevation (NSTEMI) myocardial infarction; L89.153 Pressure ulcer of sacral region, stage 3; J96.21 Acute and chronic respiratory failure with hypoxia; N17.0 Acute kidney failure with tubular necrosis; J86.9 Pyothorax without fistula; R65.21 Severe sepsis with septic shock; R57.8 Other shock; J18.1 Lobar pneumonia, unspecified organism; J94.2 Hemothorax; G93.40 Encephalopathy, unspecified; N39.0 Urinary tract infection, site not specified; B96.4 Proteus (mirabilis) (morganii) as the cause of diseases classified elsewhere; B96.89 Other specified bacterial agents as the cause of diseases classified elsewhere; Z68.42 Body mass index [BMI] 45.0-49.9, adult; I50.22 Chronic systolic (congestive) heart failure; D64.9 Anemia, unspecified; I11.0 Hypertensive heart disease with heart failure; E11.65 Type 2 diabetes mellitus with hyperglycemia; F03.90 Unspecified dementia, unspecified severity, without behavioral disturbance, psychotic disturbance, mood disturbance, and anxiety; J45.909 Unspecified asthma, uncomplicated; E87.0 Hyperosmolality and hypernatremia; E87.4 Mixed disorder of acid-base balance; E87.1 Hypo-osmolality and hyponatremia; E66.01 Morbid (severe) obesity due to excess calories; L89.316 Pressure-induced deep tissue damage of right buttock; L89.210 Pressure ulcer of right hip, unstageable; T17.990A Other foreign object in respiratory tract, part unspecified in causing asphyxiation, initial encounter; E78.5 Hyperlipidemia, unspecified; E87.6 Hypokalemia; I49.1 Atrial premature depolarization; E86.1 Hypovolemia; E83.42 Hypomagnesemia; E83.51 Hypocalcemia; E83.39 Other disorders of phosphorus metabolism; D50.9 Iron deficiency anemia, unspecified; Z63.8 Other specified problems related to primary support group; Z89.611 Acquired absence of right leg above knee; Z89.612 Acquired absence of left leg above knee; Z78.1 Physical restraint status; Z79.4 Long term (current) use of insulin; Z79.899 Other long term (current) drug therapy; Z82.49 Family history of ischemic heart disease and other diseases of the circulatory system; Z83.3 Family history of diabetes mellitus; W44.F9XA Other object of natural or organic material, entering into or through a natural orifice, initial encounter; Y93.89 Activity, other specified; Y92.89 Other specified places as the place of occurrence of the external cause; Y99.8 Other external cause status
CPT/HCPCS: 31720; 36415; 36600; 71045; 71250; 71275; 76604; 80048; 80061; 80076; 80202; 81003; 82010; 82040; 82043; 82270; 82330; 82375; 82570; 82607; 82728; 82746; 82805; 82962; 83036; 83540; 83550; 83605; 83615; 83735; 83880; 83930; 83986; 84100; 84145; 84300; 84439; 84443; 84478; 84484; 85014; 85018; 85025; 85044; 86850; 86900; 86920; 87015; 87045; 87077; 87106; 87177; 87186; 87209; 87420; 87427; 87449; 87804; 89055; 90686; 90732; 92610; 93005; 93306; 94003; 94070; 94640; 94660; 94664; 97162; 98960; 99291; A4606; J1650; J1815; J1885; J1938; J2270; J2371; J2470; J2543; J2704; J2919; J3010; J3373; J3475; J3480; J3490; J7030; J7050; J7060; J7070; J7608; P9016; Q9967